=== PATIENT | female | born 1970 | race Caucasian/White ===

== ENCOUNTER 2018-07-24 10:48 | Emergency (ER) | payer BC ==
[~2018-07-24] VITALS: Ht 162.6 cm; Wt 112.0 kg
[2018-07-24 10:51] VITALS: BP 184/98
[2018-07-24] MEDS ORDERED: METH4TAB81 PO (11:41)
[2018-07-24] MEDS ORDERED: CYCL-1 PO (11:41)
== END 2018-07-24 12:20 | disposition home or self-care (01) ==
LOC: ER 10:49
DX: M25.512 Pain in left shoulder (principal); Z88.0 Allergy status to penicillin; Z88.6 Allergy status to analgesic agent; Z88.8 Allergy status to other drugs, medicaments and biological substances; X50.9XXA Other and unspecified overexertion or strenuous movements or postures, initial encounter; Y93.89 Activity, other specified; Y92.89 Other specified places as the place of occurrence of the external cause; Y99.8 Other external cause status
CPT/HCPCS: 99283